=== PATIENT | male | born 1945 | race African-American/Black ===

== ENCOUNTER 2024-07-01 03:18 | Observation (INO) | payer MEDICARE, OTHER, SELFPAY ==
[2024-06-30 23:06] VITALS: BMI 23.3
[2024-06-30 23:11] VITALS: BP 144/80
[2024-06-30 23:53] VITALS: BP 149/81
[2024-06-30 23:56] LABS: Glucose - Point of Care 116 mg/dl (70-99)
[2024-07-01] VITALS (13 sets, daily range): BP systolic 110–164; BP diastolic 71–103
[2024-07-01 00:10] LABS: % Basophils 0.3 % (0-2); % Immature Granulocytes 0.3 % (0-0.5); % Lymphocytes 17.2 % (20.5-51.1); % Monocytes 15.9 % (1.7-9.3); % Neutrophils 65.3 % (42.2-75.2); Absolute Lymphocytes 0.5 10^3/uL (1.2-3.4); Absolute Monocytes 0.5 10^3/uL (0.1-0.6); Absolute Neutrophils 1.9 10^3/uL (1.4-6.5); Hematocrit 33.1 % (39.0-52.0); Hemoglobin 10.9 g/dL (13.0-18.0); Mean Corp Hgb Conc. 32.9 g/dL (33.0-37.0); Mean Corpuscular Hgb 30.3 pg (27.0-31.0); Mean Corpuscular Volume 91.9 fL (80.0-94.0); Mean Platelet Volume 9.8 fL (7.4-10.4); Nucleated Red Blood Cells % 0 % (-); Platelet Count 164 10^3/uL (130-400); Red Cell Dist. Width 12.7 % (11.5-14.5)
--- NOTE | 2024-07-01 00:14 | ED.GENMED ---
History of Present Illness
General
Chief Complaint: Change in Mental Status
Source: patient
Exam Limitations: none
Time Seen by Provider: 06/30/24 23:35
Nursing documentation reviewed up to this point in time: agreed with
History of Present Illness
History of Present Illness:
The patient is an 79-year-old man with a past medical history of pacemaker and TIA, who was brought in by his daughter for sudden mental status change. His daughter reports that he seemed normal up until 10:30 PM. She reports that around 10:45 PM,
he sat down to sit on a step and she reports that 'he seemed to lose purposeful movement' and became lethargic. She reports that he did not seem to lose consciousness. There was no fall. She reports that since then, he is very slow to respond and
seems lethargic. Daughter reports he has a history of stuttering since childhood and frequently has difficulty getting words out, however, she reports it seems like he is having increased difficulty getting words out but overall seems very sleepy.
She denies drugs and alcohol. Patient denies chest pain and headache. He is arousable but very slow to respond and is a vague historian. He is moving all extremities equally. Stroke alert called due to my concerns about patient having increased
difficulty speaking, however, patient is also overall lethargic and sleepy
Past History
Past History
ED Past Medical History: Cancer (Prostate CA with radation), CHF, HTN, Hypercholesterolemia and Other (Dementia, Ileos/SBO)
ED Past Surgical History: Cardiac (Pacemaker) and Urological (Prostatectomy)
Social History
Tobacco: Non-smoker
Alcohol: None
Drug: None
Personal:
Living: with family
Employment: Other
Family History
Family History: Other
Review of Systems
Review of Systems
Allergies reviewed?: Yes
Other source history: family
All Other Systems: Not applicable
Constitutional: Reports fatigue
Phy Exam
Physical Exam
Physical Exam:
Physical Exam
General: Patient lays with eyes almost fully shut. Appears lethargic. Arousable but slow to answer questions. Slow to follow simple commands
Neck: supple. no meningeal signs. normal psoterior pharynx
Heart: s1/s2 regular rate and rhythm,
Lungs: no acute respiratory distress. clear bilaterally
Abdomen: Soft, nontender
Neuro: alert but seems extremely sleepy. Moves all extremities equally
Skin: no rash
Psychiatric: Well-kept. Barely interactive
Extremities: no edema. no calf tenderness. negative homans. good distal pulses
Course
Orders/Labs/Results
Orders:
Orders
06/30/24 23:55
Electrocardiogram (*1) Urgent
Reason for Study: Other
Other Reason for Exam: Possible Stroke
Bedside Glucose- Treatment ONCE
Cardiac Monitoring- Treatment ONCE
IV Insert/Care/Rem.- Treatment PRN
Vital Signs As Directed
Frequency: Other
Weight As Directed
Frequency: Once
Comment: ZERO STRETCHER SCALE FOR ACCURATE WEIGHT
O2 Therapy [RESP] Urgent
Titrate/Wean O2 to maintain O2 sat greater than (%): 93
Special Instructions: MAINTAIN CONTINUOUS O2 SATS > OR = 93%
06/30/24 23:56
EKG- Treatment ONCE
06/30/24 23:58
CT HEAD STROKE ALERT W/o Cont Urgent
Comment:
Reason For Exam: worsening aphasia
CT HEAD/NECK ANG STROKE ALERT Urgent
Comment:
Reason For Exam: worsening aphasia
Alcohol Urgent
Complete Blood Count/With Diff Urgent
Comprehensive Metabolic Panel Urgent
PTT Urgent
Prothrombin Time Urgent
Troponin I Urgent
07/01/24 00:13
Add On- LAB Urgent
Tests Added?: serum alcohol
07/01/24 00:50
Urinalysis Reflex To Culture Urgent
Date Specimen was Collected: 07/01/24
Time Specimen was Collected: 00:46
Urine Drug Abuse Screen Urgent
Date Specimen was Collected: 07/01/24
Time Specimen was Collected: 00:46
07/01/24 02:00
Flush (0.9% Sodium Chloride) [Flush (Nss)] See Dose Instructions IV PER PROTOCOL
Abnormal Lab Results
06/30/24 06/30/24 07/01/24
23:55 23:58 00:50
WBC 3.0 L 10^3/uL
(4.8-10.8)
RBC 3.60 L 10^6/uL
(4.70-6.10)
Hgb 10.9 L g/dL
(13.0-18.0)
Hct 33.1 L %
(39.0-52.0)
MCHC 32.9 L g/dL
(33.0-37.0)
Absolute Lymphs (auto) 0.5 L 10^3/uL
(1.2-3.4)
Lymphocytes % 17.2 L %
(20.5-51.1)
Monocytes % 15.9 H %
(1.7-9.3)
BUN 36 H mg/dl
(9-20)
Creatinine 1.6 H mg/dL
(0.7-1.3)
Glucose 117 H mg/dl
(70-99)
Ur Tricyclics Screen Positive H
(Negative)
POC Glucose 116 H mg/dl
(70-99)
06/30/24 23:58
06/30/24 23:58
Vital Signs
Initial and Last Documented VS:
Initial Vital Signs
Temp Pulse Resp BP Pulse Ox
98 F 78 24 144/80 100
06/30/24 23:11 06/30/24 23:11 06/30/24 23:11 06/30/24 23:11 06/30/24 23:11
Last Documented Vital Signs
Temp Pulse Resp BP Pulse Ox
98 F 87 19 137/90 99
06/30/24 23:11 07/01/24 01:30 07/01/24 01:30 07/01/24 01:00 07/01/24 01:15
MDM/Problems Addressed
Differential Diagnosis Includes:
Intracranial bleed, metabolic abnormality, seizure, syncope
MDM/Problems Addressed:
Patient arrives with acute lethargy
Chronic conditions affecting care: CAD and Cardiomyopathy
Acute Exacerbation and/or Progression of Chronic Illness:
Patient may have acute exacerbation of heart block or CHF
Acute Exacerbation and/or Progression of Chronic Illness: Cardiomyopathy
*Radiology
Radiology exam reviewed: radiology read reviewed
*Pulse Oximetry
Patient hypoxic: no
*EKG
Interpreted by ED Provider?: Yes
Interpretation: abnormal
Comparison EKG: no changes
Rate: normal
Rhythm: av sequential
Lorain: left axis deviation
Interval: normal interval
QRS Pattern: wide non-specific
Ischemia: non-specific ST changes
*Magazine Filler Interpretation
Rate: normal
Interpretation: normal
Rhythm: av sequential
*Critical Care Note
Total Time (30-74mins, 75-104mins- exclusive of procedures): 35 minutes of critical ca
comment:
35 minutes critical care given to patient including discussing case with neurology, discussing findings with radiology, reassessing patient's mental status, reviewing his admission from 2021 and reviewing his lab work.
Data Reviewed
Review of Other/Old Records Reveals: Discharge Summary (Discharge summary reviewed from 2021 when patient was admitted for possible small bowel obstruction and complete heart block)
Source: family
Patient Management
Social determinants of health affecting care: Living situation and Strong social support
Discussion with other providers: Hospitalist and Other (Case discussed with Dr. Teague. Given patient has a history of stuttering and presents with general lethargy, it is unlikely he is having a stroke)
Escalation/DeEscalation of care consider admission/obs:
Patient is presenting with stuporous affect/lethargy. There is no sign of cardiac arrhythmia. There is no sign of sepsis. There is no sign of intracranial bleed
ED Attending Note
-
Portions of this chart may have been created with voice recognition software.� Occasional wrong word or��sound alike� substitutions may have occurred due to the inherent limitations of voice recognition software.
Discharge Plan
Departure
Patient Disposition: Admit
Date of Disposition: 07/01/24
Time of Disposition: 01:34
Admit to: Med/Surg
Presentation/result/management discussed w/ accepting MD/DO: Hospitalist
Patient with high blood pressure during this ER visit?: Yes
Condition: Fair
Discharge Problem:
Acute alteration in mental status
Prescriptions:
No Action
amlodipine 10 mg Tablet
10 mg PO DAILY
lovastatin 20 mg Tablet
20 mg PO DAILY
aspirin 81 mg Capsule
81 mg PO DAILY
metoprolol succinate 50 mg Tablet Extended Release 24 Hr
50 mg PO DAILY
hydralazine 25 mg Tablet
25 mg PO BID 30 Days Qty: 60 0RF
docusate sodium 100 mg Capsule
100 mg PO BID 30 Days Qty: 60 0RF
polyethylene glycol 3350 17 gram Powder In Packet
17 g PO DAILY 30 Days Qty: 30 0RF
Referrals:
UNKNOWN - PT NOT,INTERVIEWE [Family Provider] -
Interventions
Interventions:
ED- Neurological Assessment Last Done: 07/01/24 01:00
Discharge Date and Time
Print Language: STATELESS
[2024-07-01 00:19] LABS: INR 1.03; PT 13.8 Sec (11.4-14.6)
[2024-07-01 00:20] LABS: APTT 26.7 Sec (23.4-35.0)
[2024-07-01 00:23] LABS: ALT (SGPT) 13 U/L (0-50); AST (SGOT) 18 U/L (17-59); Alkaline Phosphatase 90 U/L (38-126); Blood Urea Nitrogen 36 mg/dl (9-20); Calcium 9.2 mg/dl (8.4-10.2); Carbon Dioxide 29 mmol/L (22-30); Chloride 103 mmol/L (98-107); Estimated Creatinine Clearance 46 ml/min; Glucose 117 mg/dl (70-99); Potassium 3.8 mmol/L (3.5-5.1); Sodium 139 mmol/L (135-145); Total Bilirubin 0.5 mg/dl (0.2-1.3); Total Protein 6.6 g/dl (6.3-8.2); eGFR 43.02
[2024-07-01 00:30] LABS: Troponin I < 0.012 ng/ml
[2024-07-01 00:43] LABS: Alcohol None Detected
[2024-07-01 00:56] LABS: Urine Albumin Negative (Neg - Trace); Urine Bilirubin Negative (Negative); Urine Character Clear (Clear); Urine Color Yellow; Urine Glucose Negative (Negative); Urine Ketone Negative (Negative); Urine Leukocyte Negative (Negative); Urine Nitrite Negative (Negative); Urine Occult Blood Negative (Negative); Urine Urobilinogen Negative (Neg - 1+)
[2024-07-01 01:17] LABS: Amphetamines Negative (Negative); Barbiturates Negative (Negative); Benzodiazepines Negative (Negative); Buprenorphine Negative (Negative); Cocaine Negative (Negative); Marijuana Negative (Negative); Methadone Negative (Negative); Methamphetamines Negative (Negative); Opiates Negative (Negative); Phencyclidine Negative (Negative); Tricyclic Antidepressants Positive (Negative)
--- NOTE | 2024-07-01 02:38 | HPS.HSE ---
Family Physician
-
Family Physician: INTERVIEWE UNKNOWN - PT NOT
Chief Complaint
-
Acute change in mental status
History of Present Illness
This is a 79-year-old male with past medical history significant for dementia, cardiomyopathy, chronic kidney disease, hyperlipidemia, hypertension, heart block status post pacemaker placement, chronic stuttering presenting to the emergency
department with episode of weakness and depressed mental status today.
Family reports that patient has been in usual state of health up until the event today. Denies any antecedent symptoms or changes in behavior or medications etc. Apparently he had a passed a large gas and immediately afterward reports was less
responsive. He appeared lethargic and would not respond to his name or perform his usual activities. The patient himself only mention that he had abdominal discomfort in the right lower quadrant after being extensively prompted. He was not unable
to provide any significant history. He did not have any nausea or vomiting. There was no diarrhea. There was no known sick contacts. He had no chest pain shortness of breath or dyspnea. No episodes of syncope prior to this. He had no changes
in his speech pattern according to family members. And he had no new weakness numbness or tingling.
In the emergency department he was afebrile, blood pressure was stable at 137/90 with a pulse of 87 and was satting 99% on room air. ECG shows dual paced rhythm with a rate of [address] No acute [address] or T wave changes. Troponin was negative.
His UA was unremarkable. CBC was unchanged from prior and mostly unremarkable. Electrolytes were normal. BUN and creatinine with elevated as has been previously without any significant change. His glucose was normal at 117. He had a CT of the
head which shows no acute intracranial process. A CT angio showed a narrowing of the left MCA M2 segment.
Medical History
Past Medical History
Past Medical History: Reports Arrhythmia (Heart block status post pacemaker), Cancer (Prostate cancer), CHF, Dementia and Hyperthyroidism
Additional Past Medical History:
CKD
Past Surgical History: Reports Other
Social History
Tobacco: Non-smoker
Alcohol: None
Drug: None
Personal:
Living: With Family
Family History
Family History: Not pertinent
Allergies / Home Medications
Allergies reflects when Allergies were last updated in [email or web address].
Home Medications with original date entered in [facility]
Allergy/Medication List:
Allergies
Allergy/AdvReac Type Severity Reaction Status Date / Time
No Known Allergies Allergy Verified 06/30/24 23:13
Home Medications
amlodipine 10 mg tablet 10 mg PO DAILY Blood pressure 04/27/22
aspirin 81 mg capsule 81 mg PO DAILY Blood clot prevention/tx 04/27/22
lovastatin 20 mg tablet 20 mg PO DAILY High cholesterol 04/27/22
metoprolol succinate 50 mg tablet,extended release 24 hr 50 mg PO DAILY Blood pressure 04/27/22
docusate sodium 100 mg capsule 100 mg PO BID 30 days #60 caps 05/02/22
hydralazine 25 mg tablet 25 mg PO BID 30 days #60 tabs 05/02/22
polyethylene glycol 3350 17 gram oral powder packet 17 g PO DAILY 30 days #30 ea 05/02/22
Review of Systems
-
Unable to obtain full review of systems at this time due to: Patient Non-verbal
History Source: Family
Constitutional: Reports No Symptoms
EENT: Reports No Symptoms
Respiratory: Reports No Symptoms
Cardiac: Reports No Symptoms
Abdomen/GI: Reports Constipated
: Reports No Symptoms
Musculoskeletal: Reports No Symptoms
Skin: Reports No Symptoms
Neurological: Reports No Symptoms
Endocrine: Reports No Symptoms
Hematologic/Lymphatic: Reports No Symptoms
Psych: Reports No Symptoms
Physical Exam
Vital Signs
Vital Signs
Temp Pulse Resp BP Pulse Ox
98 F 87 19 137/90 99
06/30/24 23:11 07/01/24 01:30 07/01/24 01:30 07/01/24 01:00 07/01/24 01:15
Physical Exam
General: No Apparent Distress and Comfortable
HEENT: NormoCephalic, Anicteric and Moist mucous membranes
Respiratory: Clear
Cardiac: S1/S2 and Regular Rhythm
Breast: Deferred by me
GI: Soft, Non Tender, Non Distended and Normal Bowel Sounds
Rectal: Deferred by Provider
Genito-urinary: Clear Urine
Musculoskeletal: No Clubbing, No Cyanosis and No Edema
Skin: Warm
Neuro: Alert, Oriented (oriented to person), Nonfocal/grossly intact and Cranial Nerves Intact
Hematologic/Lymphatic: No Lymphadenopathy
Psych: Calm and Apparent Dementia
Laboratory Results
-
06/30/24 23:58
06/30/24 23:58
Laboratory Results
PT 13.8 Sec (11.4-14.6) 06/30/24 23:58
INR 1.03 06/30/24 23:58
APTT 26.7 Sec (23.4-35.0) 06/30/24 23:58
Total Bilirubin 0.5 mg/dl (0.2-1.3) 06/30/24 23:58
AST 18 U/L (17-59) 06/30/24 23:58
ALT 13 U/L (0-50) 06/30/24 23:58
Alkaline Phosphatase 90 U/L (38-126) 06/30/24 23:58
Troponin I < 0.012 ng/ml 06/30/24 23:58
Data Reviewed
-
CT Scan: Report Reviewed by me
Medical Tests (Nuc Med, Echo, EKG etc): Image Personally Visualized and interpreted
Lab Data: Labs Reviewed by me
Old Records: Reviewed
Impression/Plan
-
IMPRESSION:
Patient with history of dementia, complete heart block status post pacemaker placement, hypertension and cardiomyopathy with CKD presents emergency department with an acute episode of change in mental status following a episode of passing gas. He
had no other symptoms. Hemodynamically stable, labs all within normal limits and similar to prior, CT of the head and CT angio shows no acute findings. He did not actually have a syncopal episode. Unclear if he did a nonconvulsive seizure. UA
was unremarkable.
PLAN:
1. Altered mental status - Unlikely syncope, possibly a seizure episode. Improving rapidly. Stutters/slurrs at baseline but otherwise no focal deficits
- admit to telemetry
- serial examinations
- covid and xray
- check lactic acid level and cpk but no obvious convulsions per family
- check tsh
- monitor on telemetry for arrhthmia
- interrogate ppm
2. CAD/CVA
- continu aspirin, statin
- continue metoprolol and amlodipine
3. Dementia - ams possibly due to new meds, monitor behavior after meds
- continue trazodone 50 hs
- continue seroquel 50 hs
DVT PPX - lovenox sq
Code status full code
[2024-07-01 03:13] LABS: COVID-19 Antigen Negative (Negative)
--- NOTE | 2024-07-01 03:46 | EDRN ---
Pt. is much more alert compared to initial presentation, speech is less slow to respond, daughter reports pt. seems more like himself.
[2024-07-01 05:07] LABS: Lactic Acid 0.9 mmol/L (0.7-2.0)
[2024-07-01 05:13] LABS: Blood Urea Nitrogen 32 mg/dl (9-20); Carbon Dioxide 26 mmol/L (22-30); Chloride 105 mmol/L (98-107); Creatine Phosphokinase 95 U/L (55-170); Estimated Creatinine Clearance 56 ml/min; Glucose 98 mg/dl (70-99); Magnesium 2.2 mg/dl (1.6-2.3); Potassium 3.8 mmol/L (3.5-5.1); Sodium 139 mmol/L (135-145); eGFR 55.19
--- NOTE | 2024-07-01 08:12 | W.PN.HOSP.TC ---
Today's Communication/Plan
-
CXR
PPM Interrogation
PT/OT
Assessment / Plan
Assessment / Plan
Mr. Stevan Spencer is a 79 yo man with history of dementia, complete heart block status post pacemaker placement, hypertension and cardiomyopathy with CKD presents emergency department with an acute episode of change in mental status following a
episode of passing gas. He had no other symptoms. Hemodynamically stable, labs all within normal limits and similar to prior, CT of the head and CT angio shows no acute findings. He did not actually have a syncopal episode. Unclear if he did a
nonconvulsive seizure. UA was unremarkable.
HEAD CT
IMPRESSION:
No acute intracranial abnormality noted.
HEAD/NECK CTA
IMPRESSION: There are no large vessel vascular occlusions observed. Note is made of poor contrast opacification of a left MCA mid M2 branch lateral to the insular cortex (series 402, images [id number]), likely severely narrowed.
PLAN:
1. Altered mental status - Unlikely syncope, and improving rapidly. Stutters/slurrs at baseline but otherwise no focal deficits. unlikely seizure given description. He had taken Trazodone and Seroquel which he has been on for several months but
explained to daughter can have stronger effect
- admit to telemetry
- covid negative
- awaiting CXR
- lactate and CK WNL
- TSH WNL
- add on B12
- monitor on telemetry for arryhthmia
- interrogate ppm
-PT/OT
-monitor another 24 hours
-decrease Trazodone dose
2. CAD/CVA
- continu aspirin, statin
- continue metoprolol and amlodipine
3. Dementia - ams possibly due to new meds, monitor behavior after meds
- continue trazodone at 25 (from 50)
- continue seroquel 50 hs
DVT PPX - lovenox sq
Code status full code
Anticipated Discharge: 24 - 48 hours
Subjective/Interval History
-
Date of Service: July 01, 2024
tired this morning
didn't sleep well overnight
daughter describes he had sudden onset gas last night, sat down and then took a while to become himself. no focal deficits
Objective Data
-
Labs:
Laboratory Results
06/30/24 07/01/24
23:58 04:34
WBC 3.0 L
Hgb 10.9 L
Hct 33.1 L
Plt Count 164
PT 13.8
INR 1.03
APTT 26.7
Sodium 139 139
Potassium 3.8 3.8
Chloride 103 105
Carbon Dioxide 29 26
BUN 36 H 32 H
Creatinine 1.6 H 1.3
Glucose 117 H 98
Calcium 9.2 9.0
Total Bilirubin 0.5
AST 18
ALT 13
Alkaline Phosphatase 90
Vital Signs:
Vital Signs
Temp Pulse Resp BP Pulse Ox
98 F 80 13 145/103 98
06/30/24 23:11 07/01/24 06:30 07/01/24 06:30 07/01/24 06:06 07/01/24 03:30
Review of Systems
-
History Source: Patient
All other systems: Reviewed and negative
Physical Exam
-
General: No Apparent Distress
HEENT: PERRLA
Respiratory: Clear to Auscultation; Negative Wheezes
Cardiac: Regular Rhythm and S1/S2
GI: Soft and Nontender
Musculoskeletal: No Edema
Skin: Warm and Dry; Negative Rash
Neuro: Sedated and Other (opens eyes and follows commands )
Psych: Calm
Data Reviewed
-
Diagnostic Radiology: Report Reviewed by me
Labs: Labs Reviewed by me
[2024-07-01 09:25] LABS: Vitamin B12 290 pg/ml (239-931)
[2024-07-01] MEDS: COLACE 100 MG PO (10:51)
[2024-07-01] MEDS: APRESOLINE 25 MG PO (10:51)
[2024-07-01] MEDS: TOPROL XL 50 MG PO (10:51)
[2024-07-01] MEDS: ASPIR LOW (ENTERIC COATED) 81 MG PO (10:51)
[2024-07-01] MEDS: MIRALAX 17 GRAMS PO (10:52)
[2024-07-01] MEDS: NAMENDA 5 MG PO (11:05)
[2024-07-01] MEDS: ZESTRIL 20 MG PO (11:05)
--- NOTE | 2024-07-01 13:28 | CM ---
Case management reviewed chart. Patient is here for altered mental status. ROCHE form discussed with daughter, Kandis, who is also at bedside. She verbalized understanding and signed form. Patient's daughter given copy and original scanned into chart.
Patient has a hx of dementia. He currently is nonverbal.
Patient lives with daughter and they live in a level home. There are 3 [address]. Patient has an active PCP and pharmacy. Patient is retired. He worked in [email or web address] No [email or web address]. He does not own any DME. He is independent. He does not drive. Daughter will
provide tranpsoration at [facility]. No HHC currently in the home.
PLAN: Home vs. HHC services at home vs. STR, pendiing PT's recommendations.
--- NOTE | 2024-07-01 13:31 | W.PN.UPDATE ---
Update Note
Progress Note Update
revisited patient
he is back to baseline
Cardiology confirmed that interrogation without arrhythmia during time of event
Suspect TME in setting of abdominal upset that is now resolved
OK for DC
I witnessed patient move around in room with daughter presents who states he is at his baseline
--- NOTE | 2024-07-01 13:33 | W.DS.TRANS ---
DC Summary - Senior Resident Care Director
-
Discharge Instructions:
Discharge Diagnosis/Procedures change in mental status
Diet Regular
Activity As tolerated
Driving Restrictions No driving
Bathing Restrictions None
Instructions:
Stand-Alone Forms:
Changes to Home Medications: No
Discharge Medications:
DC Medications w/original date entered in [employer]
amlodipine 10 mg tablet 10 mg PO HS Blood pressure 04/27/22
aspirin 81 mg capsule 81 mg PO DAILY Blood clot prevention/tx 04/27/22
metoprolol succinate 50 mg tablet,extended release 24 hr 50 mg PO DAILY Blood pressure 04/27/22
docusate sodium 100 mg capsule 100 mg PO BID 30 days #60 caps 05/02/22
hydralazine 25 mg tablet 25 mg PO BID 30 days #60 tabs 05/02/22
polyethylene glycol 3350 17 gram oral powder packet 17 g PO DAILY 30 days #30 ea 05/02/22
lisinopril 20 mg tablet 20 mg PO DAILY 07/01/24
lovastatin 10 mg tablet 10 mg PO HS 07/01/24
memantine 5 mg tablet 5 mg PO BID 07/01/24
potassium chloride 8 mEq capsule,extended release 16 meq PO DAILY 07/01/24
quetiapine 50 mg tablet (Seroquel) 50 mg PO HS 07/01/24
trazodone 50 mg tablet 50 mg PO HS 07/01/24
Home Medication Changes
Pending Results: No
--- NOTE | 2024-07-01 14:00 | W.DCSUMMARY ---
Discharge Summary
Discharge Data
Date of Admission: 07/01/24
Date of Discharge: 07/01/24
-
Pending Results: No
Hospital Course
Discharging Physician : Dr. Bernadette Jensen
Disposition : Home to care of family
Principal Discharge diagnosis : Altered mental status
Hospital Course :
Mr. Stevan Spencer is a 79 yo man with history of dementia, complete heart block status post pacemaker placement, hypertension and cardiomyopathy with CKD presents emergency department with an acute episode of change in mental status following a
episode of passing gas where he then remained lethargic and not himself for a couple of hours. Upon arrival patient was hemodynamically stable, labs all within normal limits and similar to prior, CT of the head and CT angio shows no acute findings.
UA unremarkable. PPM interrogated and showed no coinciding arrhythmia. The following morning patient was at his baseline mentation and patient's daughter wished to bring him home.
Etiology unclear, may have been TME in setting of abdominal upset that subsided versus nonconvulsive seizure. Patient doesn't drive. We discussed seeking medical attention if this happens again.
We also discussed patient's medications Trazodone and Seroquel and daughter reports he has been on these for month and can finally sleep. He had taken them both prior to episode but daughter states he is usually awake for 2 hours after taking them.
Possible medications took effect earlier resulting in sedation witnessed. For now I will not make any changes to his medication regimen.
Time spent on discharge was 31 minutes.
Important imaging findings :
HEAD CT
IMPRESSION:
No acute intracranial abnormality noted.
HEAD/NECK CTA
IMPRESSION: There are no large vessel vascular occlusions observed. Note is made of poor contrast opacification of a left MCA mid M2 branch lateral to the insular cortex (series 402, images [id number]), likely severely narrowed.
Procedure findings :
Discharge Plan
-
Patient Disposition: Home (Routine Discharge)
Discharge Diagnosis/Procedures: change in mental status
Diet: Regular
Activity: As tolerated
Driving Restrictions: No driving
Bathing Restrictions: None
Referrals:
UNKNOWN - PT NOT,INTERVIEWE [Family Provider] - in less than 1 week
Prescriptions:
Continued
amlodipine 10 mg Tablet
10 mg PO HS
aspirin 81 mg Capsule
81 mg PO DAILY
metoprolol succinate 50 mg Tablet Extended Release 24 Hr
50 mg PO DAILY
hydralazine 25 mg Tablet
25 mg PO BID 30 Days Qty: 60 0RF
docusate sodium 100 mg Capsule
100 mg PO BID 30 Days Qty: 60 0RF
Patient Comments:
07/01/24: Family does not always keep with routine on this medication.
polyethylene glycol 3350 17 gram Powder In Packet
17 g PO DAILY 30 Days Qty: 30 0RF
Patient Comments:
07/01/24: Family does not always keep with routine on this medication.
potassium chloride 8 mEq Capsule, Extended Release
16 meq PO DAILY
lisinopril 20 mg Tablet
20 mg PO DAILY
memantine 5 mg Tablet
5 mg PO BID
trazodone 50 mg Tablet
50 mg PO HS
quetiapine [Seroquel] 50 mg Tablet
50 mg PO HS
lovastatin 10 mg Tablet
10 mg PO HS
Discharge Orders:
Discharge Patient (As Directed); Ordered 07/01/24
Ordered By: Bernadette Jensen
Discharge Date and Time
Print Language: CUBAN
== END 2024-07-01 14:31 | disposition home or self-care (01) ==
LOC: ED 03:18
PROVIDERS: ADMITTING PHYSICIAN Internal Medicine; ATTENDING PHYSICIAN Student in an Organized Health Care Education/Training Program; EMERGENCY PHYSICIAN Emergency Medicine
DX: R41.82 Altered mental status, unspecified (principal); F32.A Depression, unspecified; F03.93 Unspecified dementia, unspecified severity, with mood disturbance; N18.9 Chronic kidney disease, unspecified; I50.9 Heart failure, unspecified; E78.00 Pure hypercholesterolemia, unspecified; I13.0 Hypertensive heart and chronic kidney disease with heart failure and stage 1 through stage 4 chronic kidney disease, or unspecified chronic kidney disease; R94.31 Abnormal electrocardiogram [ECG] [EKG]; R47.01 Aphasia; I25.10 Atherosclerotic heart disease of native coronary artery without angina pectoris; I42.9 Cardiomyopathy, unspecified; R53.83 Other fatigue; Z86.73 Personal history of transient ischemic attack (TIA), and cerebral infarction without residual deficits; Z85.46 Personal history of malignant neoplasm of prostate; Z92.3 Personal history of irradiation; Z95.0 Presence of cardiac pacemaker; Z79.82 Long term (current) use of aspirin; Z11.52 Encounter for screening for COVID-19
CPT/HCPCS: 93288; 70450; 70496; 70498; 71046; 80048; 80053; 80306; 81003; 82077; 82550; 82607; 82962; 83605; 83735; 84443; 84484; 85025; 85610; 85730; 87811; 93005; 99291; G0378; Q9967

== ENCOUNTER → 2025-02-16 09:18 | Outpatient (REF) | payer MEDICARE, OTHER, SELFPAY ==
[2025-02-16 12:03] LABS: Hematocrit 37.2 % (39.0-52.0); Hemoglobin 12.2 g/dL (13.0-18.0); Mean Corp Hgb Conc. 32.8 g/dL (33.0-37.0); Mean Corpuscular Volume 90.1 fL (80.0-94.0); Nucleated Red Blood Cells % 0 % (-); Platelet Count 209 10^3/uL (130-400); Red Cell Dist. Width 12.1 % (11.5-14.5); Reticulocyte Count 0.5 % (0.4-2.8)
[2025-02-16 12:22] LABS: ALT (SGPT) 14 U/L (0-50); AST (SGOT) 21 U/L (17-59); Albumin 4.5 g/dl (3.5-5.0); Alkaline Phosphatase 106 U/L (38-126); Blood Urea Nitrogen 53 mg/dl (9-20); Calcium 9.8 mg/dl (8.4-10.2); Carbon Dioxide 29 mmol/L (22-30); Chloride 106 mmol/L (98-107); Glucose 93 mg/dl (70-99); HDL Cholesterol 64 mg/dl; Iron 90 ug/dl (49-181); LDH 227 U/L (120-246); LDL Cholesterol, Calculated 81 mg/dl; Potassium 4.3 mmol/L (3.5-5.1); Sodium 143 mmol/L (135-145); Total Protein 7.7 g/dl (6.3-8.2); Very Low Density Lipoprotein 11 mg/dl (0-30); eGFR 32.71
[2025-02-16 12:31] LABS: Total Iron Binding Capacity 266 ug/dl (261-462)
[2025-02-16 12:59] LABS: Ferritin 209.0 ng/ml (17.9-464.0)
[2025-02-16 13:30] LABS: Folate 7.4 ng/ml (2.76-20); Vitamin B12 508 pg/ml (239-931)
== END ==
LOC: HWRAD 09:18
DX: R63.4 Abnormal weight loss (principal); R41.89 Other symptoms and signs involving cognitive functions and awareness; G30.9 Alzheimer's disease, unspecified; F02.80 Dementia in other diseases classified elsewhere, unspecified severity, without behavioral disturbance, psychotic disturbance, mood disturbance, and anxiety; I42.8 Other cardiomyopathies; Z85.46 Personal history of malignant neoplasm of prostate; I50.32 Chronic diastolic (congestive) heart failure; N18.32 Chronic kidney disease, stage 3b; D64.9 Anemia, unspecified; K59.09 Other constipation; E78.2 Mixed hyperlipidemia
CPT/HCPCS: 36415; 71250; 74176; 80053; 80061; 82607; 82728; 82746; 83010; 83540; 83550; 83615; 84443; 85025; 85045

== ENCOUNTER 2025-02-22 20:04 | Emergency (ER) | payer MEDICARE, OTHER, SELFPAY ==
[2025-02-22 20:08] VITALS: BP 118/73
[2025-02-22 20:26] LABS: Hematocrit 36.2 % (39.0-52.0); Hemoglobin 12.0 g/dL (13.0-18.0); Mean Corp Hgb Conc. 33.1 g/dL (33.0-37.0); Mean Corpuscular Volume 88.1 fL (80.0-94.0); Nucleated Red Blood Cells % 0 % (-); Platelet Count 200 10^3/uL (130-400); Red Cell Dist. Width 12.1 % (11.5-14.5)
[2025-02-22 20:42] LABS: ALT (SGPT) 19 U/L (0-50); AST (SGOT) 33 U/L (17-59); Albumin 4.6 g/dl (3.5-5.0); Alkaline Phosphatase 111 U/L (38-126); Blood Urea Nitrogen 65 mg/dl (9-20); Calcium 10.1 mg/dl (8.4-10.2); Carbon Dioxide 28 mmol/L (22-30); Chloride 105 mmol/L (98-107); Glucose 92 mg/dl (70-99); Potassium 4.1 mmol/L (3.5-5.1); Sodium 143 mmol/L (135-145); Total Protein 7.8 g/dl (6.3-8.2); eGFR 29.17
[2025-02-22 22:56] VITALS: BP 150/97
[2025-02-22 23:00] VITALS: BP 144/105
[2025-02-22 23:45] VITALS: BP 152/81
[2025-02-23] VITALS: BP 128/88
--- NOTE | 2025-02-23 00:23 | ED.GENMED ---
History of Present Illness
General
Chief Complaint: Failure to Thrive
Source: patient and family
Exam Limitations: clinical condition and dementia
Time Seen by Provider: 02/22/25 23:33
Nursing documentation reviewed up to this point in time: agreed with
History of Present Illness
History of Present Illness:
see MDM
Past History
Past History
ED Past Medical History: Cancer (Prostate CA with radation), CHF, HTN, Hypercholesterolemia and Other (Dementia, Ileos/SBO)
ED Past Surgical History: Cardiac (Pacemaker) and Urological (Prostatectomy)
Social History
Tobacco: Non-smoker
Alcohol: None
Drug: None
Personal:
Living: with family
Employment: Other
Family History
Family History: Other
Phy Exam
Physical Exam
Physical Exam:
GENERAL: Alert , in no apparent distress, no signs of trauma, dementia
EYE: pupils equal and reactive
NECK: Supple
ENT: o/p clr, mmm.
CARDIAC: Regular rate and rhythm .
LUNGS: Clear breath sounds bilaterally, no acute respiratory distress, no wheezes/rales/rhonchi
ABDOMEN: Soft, without focal tenderness, no r/g, no cvat, normal bowel sounds
NEUROLOGICAL: Alert very severe dementia, no focal neuro deficits, follows commands moves all extremities
SKIN: Warm and dry, skin intact. Very well cared for
MUSCULOSKELETAL: No edema, well perfused. neg molly's sign
PSYCH: Normal and appropriate interaction.
Course
Orders/Labs/Results
Orders:
Orders
02/22/25 20:14
Electrocardiogram (*1) Urgent
Reason for Study: Fatigue / Weakness
02/22/25 20:15
EKG- Treatment ONCE
02/22/25 20:18
Complete Blood Count/With Diff Urgent
Comprehensive Metabolic Panel Urgent
02/22/25 23:52
0.9% Sodium Chloride 1000 ml [Nss] 1,000 ml IV BOLUS
02/23/25
CT Head W/o Iv Contrast Urgent
Reason For Exam: confusion
02/23/25 00:18
Urinalysis Reflex To Culture Urgent
02/23/25 01:41
Quetiapine Fumarate [Seroquel] 50 mg PO NOW STA
Abnormal Lab Results
02/22/25
20:18
RBC 4.11 L 10^6/uL
(4.70-6.10)
Hgb 12.0 L g/dL
(13.0-18.0)
Hct 36.2 L %
(39.0-52.0)
Absolute Lymphs (auto) 0.9 L 10^3/uL
(1.2-3.4)
Lymphocytes % 16.8 L %
(20.5-51.1)
Monocytes % 10.4 H %
(1.7-9.3)
BUN 65 H mg/dl
(9-20)
Creatinine 2.2 H mg/dL
(0.7-1.3)
Total Bilirubin 1.8 H mg/dl
(0.2-1.3)
02/22/25 20:18
02/22/25 20:18
Vital Signs
Initial and Last Documented VS:
Initial Vital Signs
Temp Pulse Resp BP Pulse Ox
36.9 C 86 20 118/73 99
02/22/25 20:08 02/22/25 20:08 02/22/25 20:08 02/22/25 20:08 02/22/25 20:08
Last Documented Vital Signs
Temp Pulse Resp BP Pulse Ox
36.5 C 74 16 128/88 96
02/22/25 22:56 02/23/25 00:15 02/23/25 00:15 02/23/25 00:00 02/23/25 00:24
MDM/Problems Addressed
Differential Diagnosis Includes:
seeMDM
MDM/Problems Addressed:
Note:
CHIEF COMPLAINT(S)
Mental status change and medication noncompliance.
HISTORY OF PRESENT ILLNESS
Patient is an 80-year-old male with a history of pretty severe dementia, hypertension, complete heart block requiring pacemaker presents for acute on chronic worsening dementia over the last 2 weeks and not eating or taking his meds per usual.
Patient is here with his daughter whom he lives with. She is the primary historian. Apparently at a well check 3 weeks ago patient was found to have lost 20 or 30 pounds over the last year and so his family doctor ordered a CT chest abdomen pelvis
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 Patient has a consultation appointment with Kieran Richardson in 2 weeks.
\\
In the meantime it seems like the patient's confusion is worsening to the daughter and he is now spitting out some of his medication whereas he used to take it pretty regularly. It is hit or miss or whether he will take some medication but he is
not really eating and so the daughter is concerned he is dehydrated and may need some medications IV. He has not overly combative toward her but he is holding his medication in his mouth and spitting it out. He is not vomiting and does not seem to
be in pain. Patient apparently is still a full code despite this new evidence and despite his severe dementia.
He has not had his head CT. There is no fever, cough, cold symptoms, vomiting, diarrhea or urinary symptoms
PHYSICAL EXAM
- Vital Signs: Blood pressure measured at 152/81 mmHg.
- Cardiovascular: Presence of a pacemaker.
- Moving all extremities
- Neurological: Patient's speaking nonsensical, he is very altered, does follow commands very well, no focal deficits otherwise
Abdomen soft and nontender
I do not appreciate scleral icterus
- Nursing notes reviewed and vital signs reviewed.
PLAN
- Initiate intravenous fluid therapy to address potential dehydration.
- Consider administering medications intravenously if the patient is not adhering orally.
- Further evaluation of liver findings as ordered by the family doctor.
- Review and monitor blood pressure closely and adjust medication as necessary.
- Thorough review of current medications and adherence to prevent further deterioration.
DIFFERENTIAL DIAGNOSIS
The Differential Diagnosis includes, in no particular order and is not limited to:
1. Dehydration
2. Acute kidney injury secondary to dehydration
3. Dementia exacerbation
4. Hypertension with poor medication adherence
5. Electrolyte imbalance
6. Hepatic dysfunction potentially from liver lesion
7. Urinary tract infection
8. Cardiac arrhythmia potentially pacemaker-related
9. Drug-induced confusional state
10. Neurological event (e.g., transient ischemic attack or stroke)
80-year-old male from home history of complete heart block status post pacemaker, hypertension, hyperlipidemia and pretty significant dementia with a newly found gallbladder and liver masses concerned for malignancy presents for 2 weeks of
intermittently not eating or drinking much, refusing taking medications and being a little bit more confused from his baseline. He is not vomiting or seemingly in pain. She is not sure what to try, she has tried crushing his medication in
applesauce but he is holds it and spits it out. He is a full code and she is wishing to pursue a full workup and consider treatment for this cancer or likely cancer. Patient is completely disoriented, speaking nonsensically, he will follow
commands. She says that he does have fairly severe dementia but this seems a bit worse. On exam his vitals are stable, he does appear mildly dehydrated but has no abdominal tenderness or distention. White count is normal, hemoglobin stable BUN
and creatinine are slightly elevated from his baselineHis white count is normal, hemoglobin and he does have a slight bump in his T. bili from 1.3-1.8 just in the last 6 days, however he has had 1.7 T. bili from 2021. His other liver markers are
not abnormal. The dementias can to be a confounder in his treatment for this likely cancer. Daughter is not interested in having him admitted if possible. She would feel comfortable with IV hydration and understands that with his dementia and his
probable malignancy that he could had difficulty. She may not have full insight yet to what is ahead but he seems stable. She agrees to a head CT and a urinalysis. I did discuss this with the ED attending Dr. Arriola, as the bump in Joyce mazariegos could
be potentially concerning for obstructing mass however again without pain or vomiting it seems unlikely that this would be acutely changed since he was just scanned several days ago.
02/23/2025 0143 AM
Patient returned from CT but was unable to lay flat for the study and became agitated. Now rethinking things that seems not in the patient's best interest to sedate him for this head CT as daughter is agreeable that she would not necessarily
intervene tonight if we did find any evidence of cancer. Given the fact that the patient has not had trauma or focal stroke symptoms it is unlikely that the scan is going to show any acute emergency findings. At this point maybe it is best to
hydrate him and attempt to give him his Seroquel for tonight and send the patient home as it sounds as if daughter would prefer him not getting admitted even if we are not fully identifying the cause of his subacute behavior changes. I did again
offer that we could admit him to the hospital for dehydration and work through some of these things but she would prefer to take him home so it seems less beneficial to potentially give him a medication or sedation may react poorly to, since it will
not change the treatment plan
02/23/2025 0225 AM
Patient's nurse Rosina was able to crush up the Seroquel and give him and 1 bite of applesauce however he held it in his mouth for period of time, it seems as if most of it did probably dissolve. His IV fluids are running in. Patient's daughter is
agreeable to holding off on any additional testing like the urinalysis and the head CT. It turns out the [facility]ier[facility] Richardson appointment is in 2 days and she wants to get him there.
I feel this is reasonable and if he needs to return he well.
*Pulse Oximetry
SaO2: 96
Oxygen Mode of Delivery: Room air
Patient hypoxic: no (96)
*Critical Care Note
Total Time (30-74mins, 75-104mins- exclusive of procedures): Not Applicable
ED Attending Note
-
Portions of this chart may have been created with voice recognition software.� Occasional wrong word or��sound alike� substitutions may have occurred due to the inherent limitations of voice recognition software.
Discharge Plan
Departure
Discharge Problem:
Dehydration, Dementia
Instructions: Dementia (DC), Dehydration in adults - ED discharge instructions
Prescriptions:
No Action
amlodipine 10 mg Tablet
10 mg PO HS
aspirin 81 mg Capsule
81 mg PO DAILY
metoprolol succinate 50 mg Tablet Extended Release 24 Hr
50 mg PO DAILY
hydralazine 25 mg Tablet
25 mg PO BID 30 Days Qty: 60 0RF
docusate sodium 100 mg Capsule
100 mg PO BID 30 Days Qty: 60 0RF
Patient Comments:
07/01/24: Family does not always keep with routine on this medication.
polyethylene glycol 3350 17 gram Powder In Packet
17 g PO DAILY 30 Days Qty: 30 0RF
Patient Comments:
07/01/24: Family does not always keep with routine on this medication.
potassium chloride 8 mEq Capsule, Extended Release
16 meq PO DAILY
lisinopril 20 mg Tablet
20 mg PO DAILY
memantine 5 mg Tablet
5 mg PO BID
trazodone 50 mg Tablet
50 mg PO HS
quetiapine [Seroquel] 50 mg Tablet
50 mg PO HS
lovastatin 10 mg Tablet
10 mg PO HS
Referrals:
Jared Antony CRNP [Family Provider]
Activity Restrictions/Additional Instructions:
your dad was mildly dehydrated today. We tried to get some additional testing but it was rather difficult for his dementia. It is very important that you follow-up with the [facility] on . Return for any concerns.
Interventions
Interventions:
*Risk Screen - Suicide Last Done: 02/22/25 20:38
*General Assessment Last Done: 02/22/25 22:59
*Neglect/Abuse Screening Last Done: 02/22/25 20:38
*ED- Fall Risk Assessment Last Done: 02/22/25 22:59
*ED COVID-19 Vaccine History Last Done: 02/22/25 22:59
ED- Pulmonary Assessment Last Done: 02/22/25 23:06
ED-Psychological Assessment Last Done: 02/22/25 23:05
ED- Neurological Assessment Last Done: 02/22/25 23:01
ED- Cardiac Assessment Last Done: 02/22/25 23:07
Discharge Date and Time
Print Language: PORTUGUESE
[2025-02-23] MEDS: NSS 1000 IV (00:29)
[2025-02-23 00:32] VITALS: BMI 18.9
[2025-02-23] MEDS: SEROQUEL 50 MG PO (01:53)
== END 2025-02-23 03:27 | disposition home or self-care (01) ==
LOC: EMR 20:04
PROVIDERS: Student in an Organized Health Care Education/Training Program; EMERGENCY PHYSICIAN Emergency Medicine
DX: E86.0 Dehydration (principal); F03.C0 Unspecified dementia, severe, without behavioral disturbance, psychotic disturbance, mood disturbance, and anxiety; I11.0 Hypertensive heart disease with heart failure; I50.9 Heart failure, unspecified; E78.00 Pure hypercholesterolemia, unspecified; Z90.79 Acquired absence of other genital organ(s); Z91.148 Patient's other noncompliance with medication regimen for other reason; Z95.0 Presence of cardiac pacemaker
CPT/HCPCS: 99283; 80053; 85025; 93005